=== PATIENT | male | born 1990 | race Caucasian/White ===

== ENCOUNTER 2021-06-07 18:23 | Inpatient (IN) | payer BC, SELFPAY ==
[~2021-06-07] VITALS: Ht 170.2 cm; Wt 64.4 kg
[2021-06-07 18:39] VITALS: BP_SYST 116
[2021-06-07 19:44] LABS: BILIRUBIN,URINE 1+ (NEGATIVE); BLOOD, URINE NEGATIVE (NEGATIVE); COLOR,URINE ORANGE (YELLOW); GLUCOSE,URINE NEGATIVE (NEGATIVE); KETONES,URINE 1+ (NEGATIVE); LEUKOCYTE ESTERASE ,URINE NEGATIVE (NEGATIVE); NITRITE, URINE POSITIVE (NEGATIVE); PROTEIN URINE 2+ (NEGATIVE)
--- NOTE | 2021-06-07 20:00 | NUR ---
Pt experienced mild to moderate dizziness at lab drawing blood, therefore nurse charge rn decided to place pt on hallway wheelchair
[2021-06-07 20:06] LABS: CLARITY/URINE HAZY (CLEAR)
[2021-06-07 20:06] LABS: BASOPHILS # (AUTO) 0.1 K/uL (0.0-0.2); BASOPHILS % (AUTO) 1.1 % (0.0-2.0); EOSINOPHILS # (AUTO) 0.1 K/uL (0.0-0.4); EOSINOPHILS % (AUTO) 0.9 % (0.0-4.0); HEMATOCRIT 50.3 % (36-54); HEMOGLOBIN 17.8 g/dL (14.0-18.0); LYMPHOCYTES # (AUTO) 2.9 K/uL (1.0-5.5); LYMPHOCYTES % (AUTO) 29.7 % (20.5-51.5); MEAN CORPUSCULAR HEMOGLOBIN 30 pg (27-31); MEAN CORPUSCULAR HGB CONC 35 % (32-36); MEAN CORPUSCULAR VOLUME 86 fL (79.0-98.0); MONOCYTES # (AUTO) 0.8 K/uL (0.0-1.0); MONOCYTES % (AUTO) 7.8 % (1.7-9.3); NEUTROPHILS # (AUTO) 5.9 K/uL (1.8-7.7); NEUTROPHILS % (AUTO) 60.5 % (40.0-70.0); PLATELET COUNT (AUTO) 281 K/uL (130-430); RED BLOOD CELL COUNT(AUTO) 5.87 MIL/uL (4.2-6.2); RED CELL DISTRIBUTION WIDTH 13.4 % (9.0-15.0); WHITE BLOOD COUNT (AUTO) 9.8 K/uL (4.8-10.8)
--- NOTE | 2021-06-07 20:09 | NUR ---
Pt BIB family to ED with history of type 2 diabetes on insulin and Metformin, pancreatitis, and GERD, who presents to the ED with a 4-day history of mild to moderate and intermittent generalized weakness associated with nausea, vomiting, and loss of appetite. The patient states that his blood sugar has been elevated to 205. The patient also notes that on 04/27 he was admitted to [facility] where he was diagnosed with type 2 diabetes and told he had GERD. He had an endoscopy performed last week at [facility] because of his gastritis and difficulty tolerating PO
--- NOTE | 2021-06-07 20:10 | NUR ---
Dr. [facility] for pt eval
[2021-06-07 20:29] LABS: BACTERIA,URINE MODERATE /HPF (None Seen); RBC,URINE NONE SEEN /HPF (0-3)
[2021-06-07 20:30] LABS: CALCIUM 10.3 mg/dL (8.4-11.0); CREATININE 1.64 mg/dL (0.55-1.30); POTASSIUM 3.5 mmol/L (3.5-5.1)
[2021-06-07 20:31] LABS: FINE GRANULAR CASTS,URINE 30-50 /LPF (None Seen); HYALINE CASTS, URINE 0-10 /LPF (None Seen); MUCUS,URINE 3+ /LPF (None Seen)
[2021-06-07 20:37] LABS: ALBUMIN 4.5 g/dL (3.4-4.8); TOTAL BILIRUBIN 3.1 mg/dL (0.0-1.0)
[2021-06-07] MEDS ORDERED: NACL 0.9% 2,000 ML IV ONE (20:45)
[2021-06-07] MEDS ORDERED: MAG HYDROX/AL HYDROX/SIMETH 30 ML, DICYCLOMINE HCL 20 MG, LIDOCAINE VISCOUS 2% 15ML (PO... PO ONE ×3 (20:45)
[2021-06-07] MEDS ORDERED: METOCLOPRAMIDE HCL 10 MG/2 ML VIAL IVP ONE (20:45)
--- NOTE | 2021-06-07 20:49 | NUR ---
# 20 gauge angiocath placed to LAC. Use of asceptic technique. Opsite placed over site. Blood return noted. Flushed with 10 cc of normal saline. No evidence of infiltration noted. Patient tolerated well.
--- NOTE | 2021-06-07 20:50 | NUR ---
MOVED TO BED 2
--- NOTE | 2021-06-07 20:53 | NUR ---
REPORT GIVEN TO WESTON BROWN
[2021-06-07] MEDS ORDERED: ONDANSETRON HCL 4 MG/2 ML VIAL IVP ONE (21:45)
--- NOTE | 2021-06-07 21:51 | NUR ---
Patient resting quietly. No acute distress noted. Vital signs within normal range. PO FLUIDS GIVEN. PT STATED STILL FEELING NAUSEOUS. MD GLEASON MADE AWARE.
[2021-06-07] MEDS ORDERED: KETOROLAC TROMETHAMINE 30 MG VIAL IVP ONE (22:00)
--- NOTE | 2021-06-07 23:30 | NUR ---
PATIENT MOVED TO BED 7
[2021-06-07] MEDS ORDERED: NACL 0.9% 1,000 ML IV ONE (23:45)
--- NOTE | 2021-06-08 00:02 | NUR ---
Patient will be admitted to [facility]. Admitted to MED SURG unit. PENDING ROOM ASSIGNMENT. Belongings list completed. Complete and up to date summary report printed. SBAR report to be given at bedside with opportunity for questions.
[2021-06-08] MEDS ORDERED: ONDANSETRON HCL 4 MG/2 ML VIAL IVP PRN (00:15)
[2021-06-08] MEDS ORDERED: INSULIN REGULAR, HUMAN 100 UNITS/ML, 10 ML VIAL (humuLIN R) SUBCUT PRN (00:15)
[2021-06-08] MEDS ORDERED: NACL 0.9% 1,000 ML IV ONE (00:15)
[2021-06-08] MEDS ORDERED: cefTRIAXone 1 GM in D5W 50 ML IV SCH (00:15)
[2021-06-08] MEDS ORDERED: PANTOPRAZOLE SODIUM 40 MG/VIAL (PROTONIX) IVP ONE (00:15)
[2021-06-08] MEDS ORDERED: DEXTROSE 50% JECT 50 ML DISP.SYRIN IVP PRN (00:15)
--- NOTE | 2021-06-08 00:24 | NUR ---
PATIENT TAKEN TO CT SCAN VIA WHEELCHAIR BY RADIOLOGY STAFF.
[2021-06-08] MEDS ORDERED: cefTRIAXone 1 GM VIAL ONE (00:33)
[2021-06-08] MEDS: METOCLOPRAMIDE HCL 10 MG/2 ML VIAL IVP SCH ×3 (00:48→17:19)
[2021-06-08] MEDS ORDERED: INSU100I52 SUBCUT (00:52)
[2021-06-08] MEDS ORDERED: METF1000 PO (00:52)
[2021-06-08] MEDS ORDERED: PRO40 PO (00:52)
--- NOTE | 2021-06-08 00:52 | NUR ---
Medication reconciliation completed with information provided by PATIENT. Any prior medication reconciliation on file was reviewed and corrected.
--- NOTE | 2021-06-08 02:20 | NUR ---
BELONGINGS DONE AT BEDSIDE AT THIS TIME.
--- NOTE | 2021-06-08 03:38 | NUR ---
Patient's code status is FULL CODE paperwork completed and placed in chart.
--- NOTE | 2021-06-08 06:05 | NUR ---
Patient resting quietly. No acute distress noted. Vital signs within normal range.
--- NOTE | 2021-06-08 07:17 | NUR ---
REPORT GIVEN TO WESTON TERESA.
--- NOTE | 2021-06-08 07:20 | NUR ---
Assumed care of patient, report received from WESTON Mckinney. Pt currently resting in bed, no acute distress noted.
--- NOTE | 2021-06-08 09:00 | NUR ---
Patient will be admitted to care of Dr. Montalvo. Admitted to Med-surg unit. Will go to room 110B. Belongings list completed. Complete and up to date summary report printed. SBAR report to be given at bedside with opportunity for questions.
--- NOTE | 2021-06-08 09:17 | NUR ---
ADMIT NOTE Received pt from ER to the floor with a diagnosis of INTRACTABLE NAUSE AND VOMITTING. Admission process initiated. patient oriented to pain management, safety and call light-teach back done.
[2021-06-08 11:00] LABS: CALCIUM 8.2 mg/dL (8.4-11.0); CREATININE 0.98 mg/dL (0.55-1.30)
[2021-06-08 11:05] LABS: ALBUMIN 3.1 g/dL (3.4-4.8); TOTAL BILIRUBIN 1.9 mg/dL (0.0-1.0)
[2021-06-08 11:11] VITALS: BP_SYST 132
[2021-06-08 11:11] LABS: POTASSIUM 2.7 mmol/L (3.5-5.1)
[2021-06-08] MEDS: PANTOPRAZOLE SODIUM 40 MG/VIAL (PROTONIX) IVP SCH ×2 (11:13→21:35)
--- NOTE | 2021-06-08 11:48 | NUR ---
PAGED DR RED REGARDING LOW POTASSIUM
[2021-06-08] MEDS ORDERED: POTASSIUM CHLORIDE 20 MEQ TAB.PRT.SR PO ONE (12:00)
[2021-06-08] MEDS ORDERED: POTASSIUM CHLORIDE 40 MEQ, LIDOCAINE JECT 2% PF 100 MG 50 MG in NS 250 ML IV ONE (13:00)
[2021-06-08] MEDS: NACL 0.9% 1,000 ML IV SCH ×2 (14:29→21:35)
[2021-06-08 16:36] VITALS: BP_SYST 123
--- NOTE | 2021-06-08 16:41 | NUR ---
PATIENT COMFORTABLE AT THIS TIME.
--- NOTE | 2021-06-08 17:34 | NUR ---
CONSULTATION: REASON FOR CONSULT: N/V CONSULTING PHYSICIAN: LAURE ORDERED BY: TEOFILO SPOKE WITH SAMI [phone]
--- NOTE | 2021-06-08 18:54 | NUR ---
CLOSING: K RANDEE COMPLETED. NO C/O NAUSEA OR VOMITING. AMBULATING IN THE [address]
[2021-06-08 20:45] VITALS: BP_SYST 107
[2021-06-08] MEDS: cefTRIAXone 1 GM in D5W 50 ML IV SCH (21:34)
[2021-06-08] MEDS: POTASSIUM CHLORIDE 20 MEQ TAB.PRT.SR PO SCH (21:34)
[2021-06-09] MEDS: METOCLOPRAMIDE HCL 10 MG/2 ML VIAL IVP SCH ×4 (00:19→16:25)
[2021-06-09 06:35] LABS: BASOPHILS % (AUTO) 0.6 % (0.0-2.0); EOSINOPHILS # (AUTO) 0.1 K/uL (0.0-0.4); EOSINOPHILS % (AUTO) 1.6 % (0.0-4.0); HEMATOCRIT 36.7 % (36-54); HEMOGLOBIN 13.1 g/dL (14.0-18.0); LYMPHOCYTES # (AUTO) 2.8 K/uL (1.0-5.5); LYMPHOCYTES % (AUTO) 48.2 % (20.5-51.5); MEAN CORPUSCULAR HEMOGLOBIN 31 pg (27-31); MEAN CORPUSCULAR HGB CONC 36 % (32-36); MEAN CORPUSCULAR VOLUME 87 fL (79.0-98.0); MONOCYTES # (AUTO) 0.3 K/uL (0.0-1.0); NEUTROPHILS # (AUTO) 2.5 K/uL (1.8-7.7); NEUTROPHILS % (AUTO) 43.6 % (40.0-70.0); PLATELET COUNT (AUTO) 190 K/uL (130-430); RED CELL DISTRIBUTION WIDTH 13.2 % (9.0-15.0); WHITE BLOOD COUNT (AUTO) 5.9 K/uL (4.8-10.8)
[2021-06-09 06:49] LABS: ALBUMIN 2.7 g/dL (3.4-4.8); CREATININE 0.54 mg/dL (0.55-1.30); POTASSIUM 4.1 mmol/L (3.5-5.1); TOTAL BILIRUBIN 1.6 mg/dL (0.0-1.0)
[2021-06-09 08:00] VITALS: BP_SYST 115
[2021-06-09] MEDS: NACL 0.9% 1,000 ML IV SCH (08:00)
[2021-06-09] MEDS: PANTOPRAZOLE SODIUM 40 MG/VIAL (PROTONIX) IVP SCH ×2 (09:44→21:41)
[2021-06-09] MEDS ORDERED: CIPROFLOXACIN HCL 500 MG TABLET PO ONE (13:15)
--- NOTE | 2021-06-09 13:48 | NUR ---
HIDA scan done today. Dr Montalvo seen result. spoke to the patient and order to go home tomorrow.
--- NOTE | 2021-06-09 14:39 | NUR ---
Dietitian Recommendations *Recommend: continue [facility] diet. *Adhere to food preferences. Please see Nutritional Assessment for details. ABRIL MCNEAL
[2021-06-09] MEDS: POTASSIUM CHLORIDE 20 MEQ TAB.PRT.SR PO SCH ×2 (16:07→21:42)
[2021-06-09 20:00] VITALS: BP_SYST 118
--- NOTE | 2021-06-09 21:30 | NUR ---
ACCUCHECK 107 AND NO INSULIN COVERAGE NEEDED. SKIN REMAINS WARM AND DRY TO TOUCH. PT ATE 1 CUP JELLO AND 1 CUP PUDDING FOR HS SNACKS.
[2021-06-09] MEDS: CIPROFLOXACIN HCL 500 MG TABLET PO SCH (21:42)
[2021-06-09] MEDS: cefTRIAXone 1 GM in D5W 50 ML IV SCH (21:43)
[2021-06-10] MEDS: METOCLOPRAMIDE HCL 10 MG/2 ML VIAL IVP SCH ×2 (00:14→06:31)
[2021-06-10 06:40] LABS: BASOPHILS % (AUTO) 0.9 % (0.0-2.0); EOSINOPHILS # (AUTO) 0.1 K/uL (0.0-0.4); EOSINOPHILS % (AUTO) 2.4 % (0.0-4.0); HEMATOCRIT 37.9 % (36-54); HEMOGLOBIN 13.3 g/dL (14.0-18.0); LYMPHOCYTES # (AUTO) 2.7 K/uL (1.0-5.5); LYMPHOCYTES % (AUTO) 50.2 % (20.5-51.5); MEAN CORPUSCULAR HEMOGLOBIN 31 pg (27-31); MEAN CORPUSCULAR HGB CONC 35 % (32-36); MEAN CORPUSCULAR VOLUME 87 fL (79.0-98.0); MONOCYTES # (AUTO) 0.3 K/uL (0.0-1.0); MONOCYTES % (AUTO) 5.7 % (1.7-9.3); NEUTROPHILS # (AUTO) 2.2 K/uL (1.8-7.7); NEUTROPHILS % (AUTO) 40.8 % (40.0-70.0); PLATELET COUNT (AUTO) 212 K/uL (130-430); RED BLOOD CELL COUNT(AUTO) 4.36 MIL/uL (4.2-6.2); RED CELL DISTRIBUTION WIDTH 13.1 % (9.0-15.0); WHITE BLOOD COUNT (AUTO) 5.3 K/uL (4.8-10.8)
--- NOTE | 2021-06-10 06:59 | NUR ---
PT IS AWAKE AND RESTING QUIETLY IN BED. ALL PT'S NEEDS WERE ATTENDED TO. ACCUCHECK 104 THIS AM AND NO INSULIN COVERAGE NEEDED. SKIN REMAINS WARM AND DRY TO TOUCH. WILL ENDORSE TO DAY SHIFT NURSE.
[2021-06-10 07:28] LABS: CALCIUM 8.6 mg/dL (8.4-11.0); CREATININE 0.6 mg/dL (0.55-1.30); POTASSIUM 4.6 mmol/L (3.5-5.1); TOTAL BILIRUBIN 1.2 mg/dL (0.0-1.0)
[2021-06-10 08:00] VITALS: BP_SYST 128
--- NOTE | 2021-06-10 08:00 | NUR ---
LOOKS HAPPY AND SAID HE IS READY TO GO HOME. MOTHER AND SISTER IS BESIDE HIM. ATE GOOD. NO COMPLAINTS OF ABDOMINAL PAIN NOTED.
[2021-06-10] MEDS: PANTOPRAZOLE SODIUM 40 MG/VIAL (PROTONIX) IVP SCH (09:19)
[2021-06-10] MEDS: POTASSIUM CHLORIDE 20 MEQ TAB.PRT.SR PO SCH (09:20)
[2021-06-10] MEDS: CIPROFLOXACIN HCL 500 MG TABLET PO SCH (09:25)
[2021-06-10] MEDS ORDERED: SSREG SUBCUT (10:22)
[2021-06-10] MEDS ORDERED: BLOO-1360 XX (10:22)
[2021-06-10] MEDS ORDERED: PRO40 PO (10:49)
[2021-06-10 11:28] VITALS: BP_SYST 120
--- NOTE | 2021-06-10 11:30 | NUR ---
bs 148 no coverage
--- NOTE | 2021-06-10 11:40 | NUR ---
Spoke w/ patient and his . He has f/u appts with diabetic clinic Jun 17, endocrinology Jun 30 and PCP, Dr Carreon Jun 23. The patient will not need home health F/U
[2021-06-10 13:44] VITALS: BP_SYST 120
== END 2021-06-10 14:10 | disposition home or self-care (01) | DRG 444 ==
LOC: SED 18:23 → SMU 23:59
PROVIDERS: ADMIT Internal Medicine; ATTEND Internal Medicine
DX: K80.20 Calculus of gallbladder without cholecystitis without obstruction (principal); N17.0 Acute kidney failure with tubular necrosis; E87.1 Hypo-osmolality and hyponatremia; K21.9 Gastro-esophageal reflux disease without esophagitis; E78.5 Hyperlipidemia, unspecified; E78.1 Pure hyperglyceridemia; E87.6 Hypokalemia; Z20.822 Contact with and (suspected) exposure to COVID-19; E86.0 Dehydration; E11.65 Type 2 diabetes mellitus with hyperglycemia; Z79.4 Long term (current) use of insulin; Z79.899 Other long term (current) drug therapy
CPT/HCPCS: 36415; 74018; 76376; 76700-TC; 78226; 80053; 80061; 81000; 82962; 83690; 85025; 87086; 96361; 96374; 96375; 99285; A9537; C9113; J0696; J1815; J2001; J2405; J2765; J3480; J7050; J7060

== ENCOUNTER 2021-06-21 21:09 | Inpatient (IN) | payer BC, SELFPAY ==
[~2021-06-21] VITALS: Ht 170.2 cm; Wt 69.4 kg
[~2021-06-21 21:09] MED LIST: BLOO-1360 XX; PRO40 PO; SSREG SUBCUT
[2021-06-21 21:37] VITALS: BP_SYST 126
[2021-06-21 22:48] LABS: BILIRUBIN,URINE 1+ (NEGATIVE); BLOOD, URINE NEGATIVE (NEGATIVE); CLARITY/URINE CLEAR (CLEAR); COLOR,URINE YELLOW (YELLOW); GLUCOSE,URINE NEGATIVE (NEGATIVE); KETONES,URINE 1+ (NEGATIVE); LEUKOCYTE ESTERASE ,URINE NEGATIVE (NEGATIVE); NITRITE, URINE NEGATIVE (NEGATIVE); PROTEIN URINE 1+ (NEGATIVE); UROBILINOGEN,URINE 0.2 (0.2-1.0)
[2021-06-22] MEDS ORDERED: ONDANSETRON HCL 4 MG/2 ML VIAL IVP ONE
[2021-06-22] MEDS ORDERED: INSULIN NPH/REGULAR 70-30, 100 UNITS/ML, 10 ML VIAL SUBCUT ONE
[2021-06-22] MEDS ORDERED: NACL 0.9% 2,000 ML IV ONE
[2021-06-22 01:16] LABS: BASOPHILS # (AUTO) 0.1 K/uL (0.0-0.2); BASOPHILS % (AUTO) 0.9 % (0.0-2.0); EOSINOPHILS # (AUTO) 0.1 K/uL (0.0-0.4); EOSINOPHILS % (AUTO) 0.8 % (0.0-4.0); HEMATOCRIT 42.1 % (36-54); HEMOGLOBIN 14.7 g/dL (14.0-18.0); LYMPHOCYTES # (AUTO) 1.7 K/uL (1.0-5.5); LYMPHOCYTES % (AUTO) 24.1 % (20.5-51.5); MEAN CORPUSCULAR HEMOGLOBIN 31 pg (27-31); MEAN CORPUSCULAR HGB CONC 35 % (32-36); MEAN CORPUSCULAR VOLUME 88 fL (79.0-98.0); MONOCYTES # (AUTO) 0.4 K/uL (0.0-1.0); MONOCYTES % (AUTO) 6.5 % (1.7-9.3); NEUTROPHILS # (AUTO) 4.7 K/uL (1.8-7.7); NEUTROPHILS % (AUTO) 67.7 % (40.0-70.0); PLATELET COUNT (AUTO) 319 K/uL (130-430); RED BLOOD CELL COUNT(AUTO) 4.79 MIL/uL (4.2-6.2); RED CELL DISTRIBUTION WIDTH 13.9 % (9.0-15.0); WHITE BLOOD COUNT (AUTO) 6.9 K/uL (4.8-10.8)
[2021-06-22 01:40] LABS: ANION GAP 8 (5-15); CHLORIDE 93 mmol/L (98-107); CREATININE 0.79 mg/dL (0.55-1.30); GFR AFRICAN AMERICAN 148 mL/min (>90); GLUCOSE 146 mg/dL (70-99); POTASSIUM 3.2 mmol/L (3.5-5.1); SODIUM SERUM 133 mmol/L (136-145); UREA NITROGEN, BLOOD 26 mg/dL (8-21)
[2021-06-22 01:41] LABS: ALANINE AMINOTRANSFERASE 53 U/L (12-78); ALBUMIN 3.9 g/dL (3.4-4.8); ASPARTATE AMINOTRANSFERASE 24 U/L (10-37); TOTAL BILIRUBIN 2.6 mg/dL (0.0-1.0)
[2021-06-22 01:44] LABS: ACETONE, SERUM NEGATIVE (NEGATIVE)
[2021-06-22] MEDS ORDERED: NACL 0.9% 1,000 ML IV ONE (02:00)
[2021-06-22] MEDS ORDERED: D5NS 1,000 ML IV ONE (02:45)
[2021-06-22] MEDS ORDERED: INSULIN REGULAR, HUMAN 100 UNITS/ML, 10 ML VIAL (humuLIN R) SUBCUT PRN (02:45)
[2021-06-22] MEDS ORDERED: MORPHINE 2 MG/ML INJ. SYRINGE IVP PRN (05:30)
[2021-06-22] MEDS ORDERED: ACETAMINOPHEN 325 MG TABLET PO PRN (05:30)
[2021-06-22] MEDS ORDERED: MORPHINE 4 MG INJ. 4 MG/ML VIAL IVP PRN (05:30)
[2021-06-22] MEDS ORDERED: KCL 20 mEq in 100 mL (PREMIX) 100 ML IV ONE (07:30)
[2021-06-22] MEDS: METOCLOPRAMIDE HCL 10 MG/2 ML VIAL IVP PRN ×2 (07:56→15:46)
[2021-06-22] MEDS ORDERED: ERYT-122 PO (08:04)
[2021-06-22] MEDS ORDERED: GLU500 PO (08:04)
[2021-06-22] MEDS ORDERED: METOCLOPRAMIDE HCL 10 MG/2 ML VIAL ONE (15:38)
[2021-06-22] MEDS ORDERED: PANTOPRAZOLE SODIUM 40 MG TAB ONE (18:10)
[2021-06-22] MEDS ORDERED: PANTOPRAZOLE SODIUM 40 MG TAB PO ONE (18:30)
[2021-06-22 20:25] VITALS: BP_SYST 111
[2021-06-22] MEDS: ONDANSETRON HCL 4 MG/2 ML VIAL IVP PRN (21:17)
[2021-06-22 23:28] LABS: BARBITURATE, URINE NEGATIVE (NEG <=200); BENZODIAZEPINE, URINE NEGATIVE (NEG <=150); CANNABINOID, URINE NEGATIVE (NEG <=50); COCAINE, URINE NEGATIVE (NEG <=150); METHAMPHETAMINES SCREEN,URINE NEGATIVE (NEG <=500); OPIATE, URINE NEGATIVE (NEG <=100); PHENCYCLIDINE SCREEN,URINE NEGATIVE (NEG <=25); UR TRICYCLIC ANTIDEPRESSANTS NEGATIVE (NEG <=300); URINE AMPHETAMINE NEGATIVE (NEG <=500); URINE METHADONE NEGATIVE (NEG <=200); URINE OXYCODONE SCREEN NEGATIVE (NEG <=100); URINE PROPOXYPHENE SCREEN NEGATIVE (NEG <=300)
[2021-06-23 00:16] VITALS: BP_SYST 128
[2021-06-23] MEDS: METOCLOPRAMIDE HCL 10 MG/2 ML VIAL IVP PRN ×3 (05:13→18:22)
[2021-06-23 08:00] VITALS: BP_SYST 119
[2021-06-23] MEDS: ONDANSETRON HCL 4 MG/2 ML VIAL IVP PRN ×2 (08:36→21:36)
[2021-06-23] MEDS: PANTOPRAZOLE SODIUM 40 MG TAB PO SCH (08:36)
[2021-06-23 12:00] VITALS: BP_SYST 139
[2021-06-23 17:51] VITALS: BP_SYST 120
[2021-06-23 21:36] VITALS: BP_SYST 133
[2021-06-24] MEDS: METOCLOPRAMIDE HCL 10 MG/2 ML VIAL IVP PRN (05:51)
[2021-06-24 05:54] VITALS: BP_SYST 124
[2021-06-24 07:34] LABS: ALBUMIN 3.7 g/dL (3.4-4.8); CALCIUM 8.9 mg/dL (8.4-11.0); CREATININE 0.62 mg/dL (0.55-1.30); POTASSIUM 3.9 mmol/L (3.5-5.1); TOTAL BILIRUBIN 2.1 mg/dL (0.0-1.0)
[2021-06-24 08:20] VITALS: BP_SYST 116
[2021-06-24] MEDS: PANTOPRAZOLE SODIUM 40 MG TAB PO SCH (08:45)
[2021-06-24] MEDS ORDERED: ERYTHROMYCIN BASE 500 MG TABLET PO ONE (11:00)
[2021-06-24 13:15] VITALS: BP_SYST 118
[2021-06-24] MEDS ORDERED: ERYTHROMYCIN BASE 500 MG TABLET PO SCH (21:00)
== END 2021-06-24 14:05 | disposition home or self-care (01) | DRG 74 ==
LOC: SED 21:09 → SMU 06-22 02:35
PROVIDERS: ADMIT Internal Medicine Hospice and Palliative Medicine; ATTEND Internal Medicine Hospice and Palliative Medicine
DX: E11.43 Type 2 diabetes mellitus with diabetic autonomic (poly)neuropathy (principal); I10 Essential (primary) hypertension; E80.6 Other disorders of bilirubin metabolism; Z20.822 Contact with and (suspected) exposure to COVID-19; K82.8 Other specified diseases of gallbladder; K31.84 Gastroparesis; K57.90 Diverticulosis of intestine, part unspecified, without perforation or abscess without bleeding; E80.4 Gilbert syndrome
CPT/HCPCS: 36415; 36600; 71045; 74018; 76700-TC; 78226; 80053; 80307; 81003; 82009; 82803-TC; 82962; 83690; 85025; 87081; 96361; 96372; 96374; 99285; A9537; J1815; J2270; J2405; J2765; J3480

== ENCOUNTER 2022-06-22 21:16 | Emergency (ER) | payer BC, OTHER ==
[~2022-06-22] VITALS: Ht 170.2 cm; Wt 81.6 kg
[~2022-06-22 21:16] MED LIST changes: -BLOO-1360 XX; +GLU500 PO; -SSREG SUBCUT
--- NOTE | 2022-06-22 21:24 | NUR ---
Patient to ER bed 6 to gown for evaluation. Side rails up. Report given to Shayne Guillory (reg).
[2022-06-22 21:25] VITALS: BP_SYST 135
--- NOTE | 2022-06-22 21:30 | NUR ---
ER at bedside examining patient.
[2022-06-22 22:09] LABS: BASOPHILS # (AUTO) 0.1 K/uL (0.0-0.2); BASOPHILS % (AUTO) 1.2 % (0.0-2.0); EOSINOPHILS # (AUTO) 0.3 K/uL (0.0-0.4); EOSINOPHILS % (AUTO) 4.5 % (0.0-4.0); HEMATOCRIT 41.4 % (36-54); LYMPHOCYTES # (AUTO) 2.1 K/uL (1.0-5.5); LYMPHOCYTES % (AUTO) 32.5 % (20.5-51.5); MEAN CORPUSCULAR VOLUME 87 fL (79.0-98.0); MONOCYTES # (AUTO) 0.5 K/uL (0.0-1.0); MONOCYTES % (AUTO) 7.7 % (1.7-9.3); NEUTROPHILS # (AUTO) 3.5 K/uL (1.8-7.7); NEUTROPHILS % (AUTO) 54.1 % (40.0-70.0); PLATELET COUNT (AUTO) 199 K/uL (130-430); RED BLOOD CELL COUNT(AUTO) 4.75 MIL/uL (4.2-6.2); RED CELL DISTRIBUTION WIDTH 13.5 % (9.0-15.0); WHITE BLOOD COUNT (AUTO) 6.4 K/uL (4.8-10.8)
[2022-06-22 22:30] LABS: ANION GAP 8 (5-15); CALCIUM 8.9 mg/dL (8.4-11.0); CHLORIDE 100 mmol/L (98-107); CREATININE 0.99 mg/dL (0.55-1.30); GLUCOSE 236 mg/dL (70-99); POTASSIUM 4.3 mmol/L (3.5-5.1); SODIUM SERUM 136 mmol/L (136-145); UREA NITROGEN, BLOOD 20 mg/dL (8-21)
[2022-06-22] MEDS ORDERED: levoFLOXacin 500 MG TABLET PO ONE (22:30)
[2022-06-22] MEDS ORDERED: CLOTRIMAZOLE 1% TOPICAL CREAM 15 GM TP ONE (22:30)
[2022-06-22 22:38] LABS: ALANINE AMINOTRANSFERASE 50 U/L (12-78); ALBUMIN 3.5 g/dL (3.4-4.8); ASPARTATE AMINOTRANSFERASE 18 U/L (10-37); TOTAL BILIRUBIN 0.7 mg/dL (0.0-1.0)
[2022-06-22 22:45] LABS: GFR AFRICAN AMERICAN 113 mL/min (>90)
[2022-06-22] MEDS ORDERED: LEVO-62 PO (22:49)
[2022-06-22] MEDS ORDERED: CLOT15CR5 TP (22:49)
[2022-06-22 23:09] LABS: BILIRUBIN,URINE NEGATIVE (NEGATIVE); COLOR,URINE YELLOW (YELLOW); GLUCOSE,URINE 1+ (NEGATIVE); KETONES,URINE TRACE (NEGATIVE); LEUKOCYTE ESTERASE ,URINE NEGATIVE (NEGATIVE); NITRITE, URINE NEGATIVE (NEGATIVE); PROTEIN URINE NEGATIVE (NEGATIVE); UROBILINOGEN,URINE 0.2 (0.2-1.0)
[2022-06-22 23:10] LABS: BLOOD, URINE TRACE (NEGATIVE); CLARITY/URINE HAZY (CLEAR)
[2022-06-22 23:17] LABS: RBC,URINE 0-3 /HPF (0-3)
[2022-06-22 23:18] LABS: BACTERIA,URINE None Seen /HPF (None Seen); WBC,URINE NONE SEEN /HPF (0-3)
[2022-06-23 00:57] VITALS: BP_SYST 115
--- NOTE | 2022-06-23 00:59 | NUR ---
Pt DC per MD DC instruction and prescription provided to pt Pt verbalized understandings verbalized understandngs AOX4 VSS Able to make needs known NAD at this time Pt exited ED in stable gait
== END 2022-06-23 00:57 | disposition home or self-care (01) ==
LOC: SED 21:16
DX: S90.812A Abrasion, left foot, initial encounter (principal); S90.811A Abrasion, right foot, initial encounter; B35.3 Tinea pedis; E11.9 Type 2 diabetes mellitus without complications; K21.9 Gastro-esophageal reflux disease without esophagitis; Z79.899 Other long term (current) drug therapy; X58.XXXA Exposure to other specified factors, initial encounter; Y93.89 Activity, other specified; Y92.89 Other specified places as the place of occurrence of the external cause; Y99.8 Other external cause status
CPT/HCPCS: 36415; 71045; 80053; 81000; 83880; 84484; 85025; 85379; 93005; 99285